=== PATIENT | female | born 1980 | race African-American/Black ===

== ENCOUNTER 2020-11-08 11:41 | Emergency (ER) | payer MEDICARE, OTHER ==
[~2020-11-08] VITALS: Ht 170.2 cm; Wt 39.3 kg
[~2020-11-08 11:41] MED LIST: LEVE250T55 PO; PHEN100C23 PO
[2020-11-08] MEDS ORDERED: LEVE500T53 PO (12:09)
[2020-11-08] MEDS ORDERED: PHENY100 PO (12:09)
[2020-11-08 13:05] LABS: APPEARANCE,URINE CLOUDY (CLEAR); BILIRUBIN,URINE NEGATIVE (NEGATIVE); GLUCOSE, URINE (UA) NEGATIVE (NEGATIVE); KETONES,URINE TRACE mg/dL (NEGATIVE); LEUKOCYTE ESTERASE ,URINE NEGATIVE (NEGATIVE); NITRATE,URINE NEGATIVE (NEGATIVE); OCCULT BLOOD,URINE NEGATIVE (NEGATIVE); PH,URINE 5.5 (5.0-8.0); PROTEIN,URINE NEGATIVE (NEGATIVE); UROBILINOGEN,URINE 0.2 mg/dL (<=1.0)
[2020-11-08 13:24] LABS: BASOPHILS % (AUTO) 0.8 % (0.0-2.0); EOSINOPHILS % (AUTO) 0.7 % (1.0-6.0); HEMATOCRIT 38.8 % (36-46); HEMOGLOBIN 12.4 g/dL (12.0-16.0); LYMPHOCYTES # (AUTO) 1.5 K/uL (1.0-4.8); LYMPHOCYTES % (AUTO) 33.4 % (22.0-44.0); MEAN CORPUSCULAR HEMOGLOBIN 26.6 pg (26.0-34.0); MEAN CORPUSCULAR VOLUME 83 fL (80-100); MONOCYTES # (AUTO) 0.5 K/uL (0.1-1.0); MONOCYTES % (AUTO) 10.4 % (2.0-9.0); NEUTROPHILS # (AUTO) 2.5 K/uL (1.8-7.7); NEUTROPHILS % (AUTO) 54.7 % (40.0-70.0); PLATELET COUNT (AUTO) 242 K/uL (150-450); RED BLOOD CELL COUNT(AUTO) 4.67 MIL/uL (4.00-5.20); RED CELL DISTRIBUTION WIDTH 13.8 % (11.5-14.5)
[2020-11-08] MEDS ORDERED: ACETAMINOPHEN 325 MG TABLET PO ONE (13:30)
[2020-11-08 13:35] LABS: ANION GAP 9 mmol/L (8-16); CALCIUM, TOTAL 8.8 mg/dL (8.8-10.5); CARBON DIOXIDE 26 mmol/L (22-29); CHLORIDE 104 mmol/L (98-107); CREATININE 0.87 mg/dL (0.60-1.30); GLOMERULAR FILTR. RATE CALC > 60 mL/min (>60); GLUCOSE,RANDOM 106 mg/dL (70-110); SODIUM SERUM 139 mmol/L (136-145); UREA NITROGEN, BLOOD 9 mg/dL (7-18)
[2020-11-08 13:45] LABS: B-TYPE NATRIURETIC PEPTIDE 12 pg/mL (0-100)
[2020-11-08 13:49] LABS: ALANINE AMINOTRANSFERASE 30 U/L (12-78); ALBUMIN 3.5 g/dL (3.4-5.0); ALKALINE PHOSPHATASE 69 U/L (46-116); ASPARTATE AMINOTRANSFERASE 17 U/L (15-37); BILIRUBIN,TOTAL 0.3 mg/dL (0.1-1.0); HCG,QUANTITATIVE 1 mIU/mL (0-6); PHENYTOIN (DILANTIN) < 0.5 mcg/mL (10.0-20.0); TOTAL PROTEIN, SERUM 7.4 g/dL (6.4-8.2)
[2020-11-08 14:07] LABS: BACTERIA,URINE None Seen /HPF (None Seen); RBC,URINE None Seen /HPF (0-2); SQUAMOUS EPITHELIAL CELL,UR Few /LPF (None Seen); WBC,URINE 0-2 /HPF (0-5)
[2020-11-08] MEDS ORDERED: SODIUM CHLORIDE 0.9% 100 ML ONE (15:44)
[2020-11-08] MEDS ORDERED: SODIUM CHLORIDE 0.9% 1,000 ML IV ONE (15:45)
[2020-11-08] MEDS ORDERED: IOHEXOL 350 MG/ML 100 ML VIAL ONE (15:45)
[2020-11-08 20:00] VITALS: BP 129/90
[2020-11-08] MEDS ORDERED: CefTRIAXone 1 GM/DEXTROSE 50 ML IV ONE (20:00)
[2020-11-08] MEDS ORDERED: AZITHROMYCIN 500 MG TABLET PO ONE (20:00)
== END 2020-11-08 21:58 | disposition home or self-care (01) ==
LOC: EMS 11:45
DX: N70.11 Chronic salpingitis (principal); R07.89 Other chest pain; F12.90 Cannabis use, unspecified, uncomplicated; Z87.891 Personal history of nicotine dependence; Z88.0 Allergy status to penicillin; Z88.1 Allergy status to other antibiotic agents
CPT/HCPCS: 36415; 71045; 74177; 76856; 80053; 80185; 81001; 81025; 83880; 84484; 84702; 85025; 85379; 93005; 96361; 96365; 99285; A9575; J0696; J7030; J7050

== ENCOUNTER 2022-04-07 10:53 | Emergency (ER) | payer MEDICARE, OTHER ==
[~2022-04-07] VITALS: Ht 170.2 cm; Wt 81.8 kg
[~2022-04-07 10:53] MED LIST changes: -LEVE250T55 PO; +LEVE500T20 PO; -PHEN100C23 PO; +PHENY100 PO
[2022-04-07 12:12] LABS: EOSINOPHILS % (AUTO) 0.1 % (1.0-6.0); HEMATOCRIT 38.9 % (36-46); HEMOGLOBIN 12.6 g/dL (12.0-16.0); LYMPHOCYTES % (AUTO) 22.3 % (22.0-44.0); MEAN CORPUSCULAR HEMOGLOBIN 27.1 pg (26.0-34.0); MEAN CORPUSCULAR HGB CONC 32.5 G/dL (31.0-37.0); MEAN CORPUSCULAR VOLUME 84 fL (80-100); MONOCYTES # (AUTO) 0.5 K/uL (0.1-1.0); NEUTROPHILS % (AUTO) 66.6 % (40.0-70.0); PLATELET COUNT (AUTO) 216 K/uL (150-450); RED BLOOD CELL COUNT(AUTO) 4.66 MIL/uL (4.00-5.20); RED CELL DISTRIBUTION WIDTH 14.3 % (11.5-14.5)
[2022-04-07 12:18] LABS: PROTHROMBIN TIME 10.5 SEC (9.4-11.6)
[2022-04-07 12:20] LABS: ALANINE AMINOTRANSFERASE 34 U/L (12-78); ALBUMIN 3.7 g/dL (3.4-5.0); ALKALINE PHOSPHATASE 56 U/L (46-116); ANION GAP 10 mmol/L (8-16); ASPARTATE AMINOTRANSFERASE 20 U/L (15-37); BILIRUBIN,TOTAL 0.3 mg/dL (0.1-1.0); CALCIUM, TOTAL 8.7 mg/dL (8.8-10.5); CARBON DIOXIDE 27 mmol/L (22-29); CHLORIDE 104 mmol/L (98-107); GLUCOSE,RANDOM 99 mg/dL (70-110); LIPASE 84 U/L (73-393); SODIUM SERUM 141 mmol/L (136-145); TOTAL PROTEIN, SERUM 7.6 g/dL (6.4-8.2); UREA NITROGEN, BLOOD 5 mg/dL (7-18)
[2022-04-07 12:24] LABS: GLOMERULAR FILTR. RATE CALC > 60 mL/min (>60); POTASSIUM 2.8 mmol/L (3.5-5.1)
[2022-04-07 12:24] LABS: APPEARANCE,URINE CLEAR (CLEAR); BILIRUBIN,URINE NEGATIVE (NEGATIVE); GLUCOSE, URINE (UA) NEGATIVE (NEGATIVE); KETONES,URINE NEGATIVE (NEGATIVE); LEUKOCYTE ESTERASE ,URINE NEGATIVE (NEGATIVE); NITRATE,URINE NEGATIVE (NEGATIVE); OCCULT BLOOD,URINE SMALL (NEGATIVE); PROTEIN,URINE 30-70 mg/dL (NEGATIVE); SPECIFIC GRAVITIY, URINE 1.022 (1.003-1.030); UROBILINOGEN,URINE <=1.0 mg/dL (<=1.0)
[2022-04-07] MEDS ORDERED: POTASSIUM CHL 10 MEQ/WATER 50 ML IV ONE (12:30)
[2022-04-07] MEDS ORDERED: FLUT16H NASAL (12:30)
[2022-04-07] MEDS ORDERED: POTASSIUM CHLORIDE 20 MEQ ER TABLET PO ONE (12:30)
[2022-04-07] MEDS ORDERED: LOSA1TAB42 PO (12:30)
[2022-04-07] MEDS ORDERED: LEVE500T99 PO (12:30)
[2022-04-07 13:18] LABS: BACTERIA,URINE None Seen /HPF (None Seen); SQUAMOUS EPITHELIAL CELL,UR Few /LPF (None Seen); WBC,URINE None Seen /HPF (0-5)
[2022-04-07] MEDS ORDERED: PB/HYOSCY/ATR/SCOP/LIDO/MAALOX 55 ML BOTTLE PO ONE (13:30)
[2022-04-07 15:06] VITALS: BP 140/98
== END 2022-04-07 16:03 | disposition home or self-care (01) ==
LOC: EMS 10:59
DX: R10.13 Epigastric pain (principal); K29.70 Gastritis, unspecified, without bleeding; K42.9 Umbilical hernia without obstruction or gangrene; R11.2 Nausea with vomiting, unspecified; R19.7 Diarrhea, unspecified; F12.90 Cannabis use, unspecified, uncomplicated; R56.9 Unspecified convulsions; Z87.891 Personal history of nicotine dependence; Z88.0 Allergy status to penicillin; Z88.2 Allergy status to sulfonamides; Z98.890 Other specified postprocedural states
CPT/HCPCS: 99285; 96365; 80053; 81001; 83690; 83735; 85025; 85610; 85730; 36415; 93005; J3480

== ENCOUNTER 2022-05-02 05:40 | Emergency (ER) | payer MEDICARE, OTHER ==
[~2022-05-02] VITALS: Ht 170.2 cm; Wt 73.2 kg
[~2022-05-02 05:40] MED LIST changes: +FLUT16H NASAL; -LEVE500T20 PO; +LEVE500T99 PO; +LOSA1TAB42 PO
[2022-05-02] MEDS ORDERED: KETOROLAC TROMETHAMINE 30 MG/ML VIAL IVP ONE (06:15)
[2022-05-02] MEDS ORDERED: FAMOTIDINE 10 MG/ML 2 ML VIAL IVP ONE (06:15)
[2022-05-02 06:33] LABS: BASOPHILS % (AUTO) 0.9 % (0.0-2.0); EOSINOPHILS % (AUTO) 0.7 % (1.0-6.0); HEMATOCRIT 40.3 % (36-46); LYMPHOCYTES # (AUTO) 1.5 K/uL (1.0-4.8); LYMPHOCYTES % (AUTO) 57.4 % (22.0-44.0); MEAN CORPUSCULAR HEMOGLOBIN 27.4 pg (26.0-34.0); MEAN CORPUSCULAR HGB CONC 32.2 G/dL (31.0-37.0); MEAN CORPUSCULAR VOLUME 85 fL (80-100); MONOCYTES # (AUTO) 0.4 K/uL (0.1-1.0); MONOCYTES % (AUTO) 13.3 % (2.0-9.0); NEUTROPHILS # (AUTO) 0.7 K/uL (1.8-7.7); NEUTROPHILS % (AUTO) 27.7 % (40.0-70.0); PLATELET COUNT (AUTO) 226 K/uL (150-450); RED BLOOD CELL COUNT(AUTO) 4.73 MIL/uL (4.00-5.20); RED CELL DISTRIBUTION WIDTH 14.4 % (11.5-14.5)
[2022-05-02 06:57] LABS: ALANINE AMINOTRANSFERASE 30 U/L (12-78); ALBUMIN 4.3 g/dL (3.4-5.0); ALKALINE PHOSPHATASE 68 U/L (46-116); ANION GAP 9 mmol/L (8-16); ASPARTATE AMINOTRANSFERASE 23 U/L (15-37); BILIRUBIN,TOTAL 0.6 mg/dL (0.1-1.0); CALCIUM, TOTAL 9.4 mg/dL (8.8-10.5); CARBON DIOXIDE 33 mmol/L (22-29); CHLORIDE 102 mmol/L (98-107); CREATININE 0.97 mg/dL (0.60-1.30); GLUCOSE,RANDOM 97 mg/dL (70-110); LIPASE 108 U/L (73-393); POTASSIUM 3.6 mmol/L (3.5-5.1); SODIUM SERUM 144 mmol/L (136-145); TOTAL PROTEIN, SERUM 8.4 g/dL (6.4-8.2); UREA NITROGEN, BLOOD 10 mg/dL (7-18)
[2022-05-02 07:07] VITALS: BP 142/103
[2022-05-02] MEDS ORDERED: IOHEXOL 350 MG/ML 100 ML VIAL ONE (07:11)
[2022-05-02] MEDS ORDERED: SODIUM CHLORIDE 0.9% 100 ML ONE (07:11)
[2022-05-02 07:13] LABS: GLOMERULAR FILTR. RATE CALC > 60 mL/min (>60)
[2022-05-02 07:31] LABS: HCG,QUANTITATIVE 4 mIU/mL (0-6)
[2022-05-02] MEDS ORDERED: DOCUSATE SODIUM 100 MG CAPSULE PO ONE (09:15)
[2022-05-02] MEDS ORDERED: DOCU-385 PO (09:15)
== END 2022-05-02 09:50 | disposition home or self-care (01) ==
LOC: EMS 05:46
DX: B34.9 Viral infection, unspecified (principal); F12.90 Cannabis use, unspecified, uncomplicated; Z87.891 Personal history of nicotine dependence; Z98.890 Other specified postprocedural states; Z88.0 Allergy status to penicillin; Z88.2 Allergy status to sulfonamides
CPT/HCPCS: 99285; 74177; 96374; 71045; 96375; 80053; 83690; 84702; 85025; 36415; J3490; J1885; Q9967; J7050